=== PATIENT | female | born 1970 | race Two or more races ===

== ENCOUNTER 2024-05-26 15:09 | Emergency (ER) | payer OTHER ==
[~2024-05-26] VITALS: Ht 154.9 cm; Wt 69.0 kg
[2024-05-26 15:38] LABS: Basophils # (auto) 0.1 10 ^3/uL (0-0.2); Basophils % (auto) 0.6 % (0.0-2.0); Eosinophils # (auto) 0.1 10 ^3/uL (0-0.8); Hematocrit 43.1 % (36.0-46.0); Hemoglobin 14.2 g/dL (12.2-16.2); Lymphocytes # (auto) 2.9 10 ^3/uL (0.4-5.4); Lymphocytes % (auto) 31.4 % (10.0-50.0); Mean Corpuscular Hemoglobin 28.4 pg (28.0-32.0); Mean Corpuscular Hgb Conc. 32.9 g/dL (32.0-36.0); Mean Corpuscular Volume 86.5 fL (80.0-100.0); Monocytes # (auto) 0.7 10 ^3/uL (0-1.3); Monocytes % (auto) 7.5 % (0.0-12.0); Neutrophils # (auto) 5.6 10 ^3/uL (1.6-8.6); Neutrophils % (auto) 59.5 % (37.0-80.0); Nucleated Red Blood Cells % 0.2 %; Platelet Count (auto) 185 10^3/uL (140-450); Red Blood Cells 4.98 10^6/uL (4.0-5.20); Red Cell Distribution Width 14.9 % (11.8-14.3); White Blood Cell 9.4 10^3/uL (4.4-10.8)
[2024-05-26 16:01] LABS: Alanine Aminotransferase 27 U/L (7-40); Albumin 4.7 g/dL (3.2-4.8); Alkaline Phosphatase 104 U/L (46-116); Anion Gap 9 (5-15); Aspartate Aminotransferase 22 U/L (13-40); BUN/Creatinine Ratio 13.8 (10.0-20.0); Bilirubin, Total 0.6 mg/dL (0.2-1.0); Blood Urea Nitrogen 11 mg/dL (9-23); Carbon Dioxide 26 mmol/L (20-31); Glucose 94 mg/dL (74-106); Sodium 142 mmol/L (136-145)
[2024-05-26 16:02] LABS: Chloride 107 mmol/L (98-107); Potassium 3.4 mmol/L (3.5-5.1)
--- NOTE | 2024-05-26 16:13 | ED.PDOC ---
HPI Comments Rolf: HPI: Poor Historian. 53y F who presents to the ED for chief complaint of chest pain. Pt has the following ED course: -Pt states earlier this afternoon, she started having R arm numbness and pain and then preceded to have pressure like chest pain. -Pt states the pain was pressure like nature, constant, R side of chest, with no associated exacerbating or relieving factors. - Pt states she has history of HTN but states she has not taken HTN meds in many years and states she checked her BP and states it was elevated and came to the ED - pt in the ED, still has noted chest pain but denies any associated diaphoresis, palpitations, nausea, headache or dizziness. - pt in the ED, is noted to have elevated BP of 197/93 with all other vitals in normal range. - Past Medical History: Hypertension, tobacco abuse Past Surgical History: Denies any REVIEW OF SYSTEMS: CONSTITUTIONAL: Denies acute: fever, diaphoresis, chills, generalized weakness. HEAD: Denies acute: headache, photophobia Eyes: Denies acute: Double vision, vision loss, eye pain, eye discharge. EARS: Denies acute: tinnitus, hearing loss, ear discharge, ear pain, THROAT: Denies acute: sore throat, swelling, difficulty swallowing , pain with s wallowing, change in voice. NECK: Denies acute: neck pain, neck swelling, stiff neck. HEART: Denies acute : palpitations, LUNGS: Denies acute: SOB, wheezing, cough, hemoptysis ABDOMEN: Denies acute: abdominal pain, Nausea, Vomiting, diarrhea, melena , hematemesis, hematochezia SKIN: Denies acute: rash, redness, lesions, itchiness. EXTREMITIES: Denies acute: calf pain, weakness Denies acute: Low back pain. Neuro: Denies acute: focal neurological deficit, motor or sensory focal neurological de ficit, tremors, seizure like activity, confusion, dizziness, change in mental status, loss of bowel or bladder function, cauda equina like symptoms. : Denies acute: dysuria, hematuria, flank pain, increase in urinary frequency. PSYCH: Denies acute: hallucination, suicidal ideation, homicidal ideation. FEMALE: Denies acute: abnormal vaginal bleeding, foul odor, unusual discharge. PHYSICAL EXAM: General: no acute distress, awake and alert. Head: normocephalic, atraumatic. Neck: supple, trachea is midline, no swelling. Throat: Normal phonation. Eyes:, no erythema, no purulent discharge, no proptosis, no icterus. Heart: regular rate, regular rhythm, no significant murmur appreciated. Lungs: no apparent respiratory distress, Able to speak in full sentences. No wheezing, no rhonchi, no crackles. No stridors Clear to auscultation bilaterally. Abdomen: non tender to palpation, non distended, soft, no guarding, no rebound, + bowel sounds. Neuro: Awake, Alert, oriented to name, self, situation, follows commands GCS=15. Speech is normal. Skin: no petechia, no purpura, no cyanosis, non-pale, not jaundice. Lower extremities: --no - Pitting edema no deformity, no focal swelling, no calf TTP. Makes eye contact. moves all four extremities. Face: no apparent facial droop. Ambulating in the ED independently. ED COURSE: Chief Complaint: Chest Pain Time Seen by MD: 15:10 Reviewed Notes: Nurses Notes, Medications, Allergies Allergies: Coded Allergies: NO KNOWN ALLERGIES (Unverified , 05/26/24) Information Source: Patient Mode of Arrival: Ambulatory Was a procedure done? Was a procedure done?: No CP Differential Dx Differential Diagnosis: N/A Differential Diagnosis: Other (DDX include renal disease, thyroid disease, electrolyte abnormality, increased salt intake, medications non-compliance, undiagnosed HTN, Hypertensive crisis, hypertensive urgency., drug toxicity.) Differential Diagnosis: Other (Ddx include but not limitied to gastritis, musculoskeletal pain, radiculopathy, atypical chest pain, dissection, aneurysm, ACS, unstable angina, hiatal hernia, GERD, anxiety, costochondritis, PE, pneumothroax, neoplasm, cardiac ischemia, drug abuse, anemia.) X-Ray, Labs, Meds, VS Vital Signs Date Time Temp Pulse Resp B/P (MAP) Pulse Ox O2 Delivery O2 Flow Rate FiO2 05/26/24 20:16 98.6 68 16 188/98 (128) 97 98.6 05/26/24 19:53 80 204/103 05/26/24 19:50 80 16 97 Room Air* 0 21 05/26/24 19:45 80 204/103 05/26/24 19:30 204/103 (136) 05/26/24 19:28 98.6 73 206/112 (143) 96 98.6 05/26/24 18:55 82 197/82 05/26/24 18:52 176/102 05/26/24 18:15 176/102 05/26/24 18:10 176/102 05/26/24 17:17 98.0 81 16 211/107 (141) 98 98.0 05/26/24 17:17 81 16 98 Room Air* 0 21 05/26/24 17:13 211/107 05/26/24 15:16 75 05/26/24 15:09 98.3 76 20 197/93 (127) 98 98.3 Lab Test 05/26/24 19:57 05/26/24 18:33 05/26/24 16:18 05/26/24 15:24 Range/Units Urine Color Pending Urine Clarity Pending Urine pH Pending Urine Specific [place] Pending Urine Protein Pending Urine Ketones Pending Urine Blood Pending Urine Nitrite Pending Urine Bilirubin Pending Urine Urobilinogen Pending Urine Leukocyte Esterase Pending Urine RBC Pending Urine Microscopic WBC Pending Urine Squamous Epithelial Cells Pending Urine Bacteria Pending Urine Glucose Pending Urine Opiates Screen Pending Urine Fentanyl Screen Pending Urine Barbiturates Screen Pending Urine Phencyclidine Screen Pending Urine Amphetamines Screen Pending Urine Benzodiazepines Screen Pending Urine Cocaine Screen Pending Urine Cannabinoids Screen Pending Troponin I High Sensitivity 4 4 4 </=34 ng/L Lactic Acid Level 0.9 0.4-2.0 mmol/L White Blood Count 9.4 4.4-10.8 10^3/uL Red Blood Count 4.98 4.0-5.20 10^6/uL Hemoglobin 14.2 12.2-16.2 g/dL Hematocrit 43.1 36.0-46.0 % Mean Corpuscular Volume 86.5 80.0-100.0 fL Mean Corpuscular Hemoglobin 28.4 28.0-32.0 pg Mean Corpuscular Hemoglobin Concent 32.9 32.0-36.0 g/dL Red Cell Distribution Width 14.9 H 11.8-14.3 % Platelet Count 185 140-450 10^3/uL Mean Platelet Volume 10.0 6.9-10.8 fL Neutrophils (%) (Auto) 59.5 37.0-80.0 % Lymphocytes (%) (Auto) 31.4 10.0-50.0 % Monocytes (%) (Auto) 7.5 0.0-12.0 % Eosinophils (%) (Auto) 1.0 0.0-7.0 % Basophils (%) (Auto) 0.6 0.0-2.0 % Neutrophils # (Auto) 5.6 1.6-8.6 10 ^3/uL Lymphocytes # (Auto) 2.9 0.4-5.4 10 ^3/uL Monocytes # (Auto) 0.7 0-1.3 10 ^3/uL Eosinophils # (Auto) 0.1 0-0.8 10 ^3/uL Basophils # (Auto) 0.1 0-0.2 10 ^3/uL Nucleated Red Blood Cells 0.2 % Sodium Level 142 136-145 mmol/L Potassium Level 3.4 L 3.5-5.1 mmol/L Chloride Level 107 98-107 mmol/L Carbon Dioxide Level 26 20-31 mmol/L Anion Gap 9 5-15 Blood Urea Nitrogen 11 9-23 mg/dL Creatinine 0.80 0.550-1.02 mg/dL Glomerular Filtration Rate Calc 89 >90 mL/min BUN/Creatinine Ratio 13.8 10.0-20.0 Serum Glucose 94 74-106 mg/dL Calcium Level 10.0 8.7-10.4 mg/dL Total Bilirubin 0.6 0.2-1.0 mg/dL Aspartate Amino Transferase (AST) 22 13-40 U/L Alanine Aminotransferase (ALT) 27 7-40 U/L Alkaline Phosphatase 104 46-116 U/L B-Type Natriuretic Peptide 3.78 0-100 pg/mL Total Protein 7.0 5.7-8.2 g/dL Albumin 4.7 3.2-4.8 g/dL Current Medications Medications (Trade) Dose Ordered Sig/Brady Route Start Time Stop Time Status Last Admin Nitroglycerin (Ntrostat Sublingual) 0.4 mg ONCE ONCE SL 05/26/24 15:45 05/26/24 15:46 DC 05/26/24 17:13 Aspirin (Ecotrin Enteric Coated Tablet) 325 mg ONCE ONCE PO 05/26/24 16:15 05/26/24 16:25 DC 05/26/24 17:13 Nitroglycerin (Ntrostat Sublingual) 0.4 mg ONCE ONCE SL 05/26/24 18:15 05/26/24 18:16 DC 05/26/24 18:15 Labetalol HCl (Labetalol HCl) 10 mg ONCE ONCE IV 05/26/24 18:45 05/26/24 18:46 DC 05/26/24 18:55 Labetalol HCl (Labetalol HCl) 10 mg ONCE ONCE IV 05/26/24 19:45 05/26/24 19:46 DC 05/26/24 19:45 Lorazepam (Ativan Inj) 1 mg ONCE ONCE IV 05/26/24 20:30 05/26/24 20:31 DC 05/26/24 20:26 [place] [id number] Ph: [phone] DIAGNOSTIC IMAGING Diagnostic Imaging Report : [id number] Signed PATIENT: NICHOLE GUZMAN ACCT: [id number] UNIT: [id number] : 1970 LOC: ER ROOM / BED: / AGE / SEX: 53 / F ADM STATUS: REG ER SERVICE [id number] ORDERING PHYSICIAN: ADRIA VILLASENOR DO PROCEDURE(s): CXRP - CHEST PORTABLE REASON: cp ORDER NUMBER(s): [id number], ACCESSION NUMBER(s): [id number] CHEST RADIOGRAPH Indication: cp Technique: Single frontal view of the chest was obtained COMPARISON: None FINDINGS: Lines and Tubes: None Lungs: Clear Pleura: No effusion. No pneumothorax. Cardiomediastinal contours: Unremarkable Bones: Unremarkable IMPRESSION: 1. No acute disease. ATED BY: ELIZA EMERY MD DICTATED DATE/TIME: 05/26/241634 SIGNED BY: ELIZA EMERY MD SIGNED DATE/TIME: 05/26/241634 CC: Time of 1ST Reevaluation: 16:23 (The case was discussed with the [facility] admitting team (HPI, physical exam, labs and diagnostic tests that were available at the time of disposition, ED course, treatment plan) on the phone. They accepted to transfer the patient to their service by ALS for further evaluation and treatment. Dr. Johnson. Authorization number [id number]) Reevaluation 1ST: Improved Patient Education/Counseling: Diagnosis, Treatment Family Education/Counseling: No Family Present Comments Patient presented with the above HPI.-cardiac-----workup was initiated. patient was found with the above mentioned diagnosis. the following medications were ordered: please refer to order lists of meds and tests obtained by myself Dr. Villasenor. Patient ED course and VS have been stabilized. Patient has been reassessed in the ED and remained in a stable condition. Pertinent incidental findings were discussed with the patient and/or family. Patient/family voices understanding and is agreeable with plan. Patient has been observed in the ED adequate length of time to insure improvement/stability. Escalation of care considered: Consideration of escalation to observation or admission Patient was transferred to [facility] per insurance requirement for further evaluation and treatment of their presentation. All the reports of any imaging studies that were ordered by myself were reviewed by myself. Departure 1 Departure Time of Disposition: 16:12 Impression: Primary Impression: Chest pain Additional Impressions: Hypertension Noncompliance with medication regimen Disposition: 02 SHORT TERM HOSPITAL Admit to: Tele Condition: Guarded Discharged With: Self Critical Care Note Critical Care Time?: Yes (45 min-critical care time only) Heart Score Heart Score: Heart Score Response (Comments) Value History Moderate Suspicious 1 EKG Normal 0 Age 45-64 1 Risk Factors 1 or 2 risk factors 1 Troponin Normal limit 0 Total 3 I personally scribed for ADRIA VILLASENOR DO ([email or web address]) on 05/26/24 at 16:52. Electronically submitted by Cee DUNLAP). ADRIA VILLASENOR DO May 26, 2024 16:13
--- NOTE | 2024-05-26 16:37 | DVH ---
CHEST RADIOGRAPH Indication: cp Technique: Single frontal view of the chest was obtained COMPARISON: None FINDINGS: Lines and Tubes: None Lungs: Clear Pleura: No effusion. No pneumothorax. Cardiomediastinal contours: Unremarkable Bones: Unremarkable IMPRESSION: 1. No acute disease.
[2024-05-26] MEDS: ASPirin-EC 325mg tab PO ONE (17:13)
[2024-05-26] MEDS: NITROGLYCERIN 0.4 MG SL TAB SL ONE ×2 (17:13→18:15)
[2024-05-26] MEDS: ASPirin 81 mg TAB PO ONE (17:16)
[2024-05-26 17:17] VITALS: PULSE 81; RESP 16; O2SAT 98
[2024-05-26] MEDS: LABETALOL HCL 20 MG/4 ML VL IV ONE ×2 (18:55→19:45)
--- NOTE | 2024-05-26 18:59 | ECG ---
[facility] Test Date: 2024-05-26 Test Time: 15:16:21 Pat Name: NICHOLE GUZMAN Department: ED Room: Gender: F [employer]er: : 1970 Requested By: ADRIA VILLASENOR Order Number: [id number] Reading MD: Scooter Sanchez Measurements Intervals [place] Rate: 75 P: 76 OR: 159 QRS: 66 QRSD: 98 T: 60 QT: 431 QTc: 482 Interpretive Statements Sinus rhythm Electronically Signed On 05-28-2024 17:35:36 PDT by Scooter Sanchez Please click the below link to view image of tracing.
[2024-05-26 19:50] VITALS: PULSE 80; RESP 16; O2SAT 97
[2024-05-26 20:23] LABS: Urine Bacteria None Seen /hpf (None Seen)
[2024-05-26] MEDS: LORazepam 2MG/ML-1ML VIAL IV ONE (20:26)
[2024-05-26 20:29] LABS: Urine Blood Negative /uL (Negative); Urine Clarity Clear (Clear); Urine Color Light-Yellow (Yellow); Urine Protein, UAD Negative (Negative); Urine Specific Gravity 1.018 (1.001-1.035); Urine Squamous Epithelial Cell FEW /hpf (<5); Urine Urobilinogen 2 mg/dL (Negative); Urine WBC 2 /HPF (0-5); Urine pH 6.5 (5.0-9.0)
[2024-05-26 20:47] LABS: Amphetamine Screen, Urine Neg (NEGATIVE); Barbiturate Scree,Urine Neg (NEGATIVE); Benzodiazephine Screen, Urine Neg (NEGATIVE); Cannabinoid Screen, Urine Pos (NEGATIVE); Cocaine Screen, Urine Neg (NEGATIVE); Opiate Scree,Urine Neg (NEGATIVE); Phencyclidine Screen, Urine Neg (NEGATIVE)
[2024-05-26 23:03] VITALS: BP 178/106; PULSE 67; RESP 16; TEMP 98.4; O2SAT 100
[2024-05-26] MEDS: hydrALAZINE HCL 20 MG/ML VL IV ONE (23:09)
== END 2024-05-26 16:16 | disposition short-term general hospital (02) ==
LOC: ER 15:09
DX: R07.89 Other chest pain (principal); I10 Essential (primary) hypertension; Z91.148 Patient's other noncompliance with medication regimen for other reason; Z79.899 Other long term (current) drug therapy
CPT/HCPCS: 36415; 71045; 80053; 80307; 81001; 83605; 83880; 84484; 85025; 93005; 96374; 96375; 96376; 99285; J0360; J2060